=== PATIENT | female | born 1965 | race Caucasian/White ===

== ENCOUNTER 2018-12-31 17:52 | Observation (INO) ==
--- NOTE | 2018-12-31 19:34 | Diag Imaging Result Doc PS360 ---
EXAM: CT HEAD W/O CONTRAST INDICATION: ams, fall TECHNIQUE: This exam was performed using automated exposure control, adjustment of mA or kV according to patient size, and/or use of iterative reconstruction technique. COMPARISON: None. FINDINGS: There is no definite acute infarct given the limited sensitivity of CT versus MRI. There is no discrete intracranial mass, mass effect, or intracranial hemorrhage. The surrounding soft tissues and bony structures are essentially unremarkable. IMPRESSION: No evidence of acute intracranial pathology. Electronically signed by Juliocesar Blackman 12/31/2018 7:31 PM
--- NOTE | 2018-12-31 19:35 | Diag Imaging Result Doc PS360 ---
EXAM: CHEST-2 VIEWS INDICATION: ams TECHNIQUE: 2 views COMPARISON: 07/09/2017 FINDINGS: The lungs are grossly clear. There is no discrete pleural fluid collection or pneumothorax. The cardiomediastinal silhouette and central vasculature are grossly unremarkable. IMPRESSION: No evidence of acute pathology by plain radiograph. Electronically signed by Juliocesar Blackman 12/31/2018 7:32 PM
--- NOTE | 2018-12-31 19:36 | Diag Imaging Result Doc PS360 ---
EXAM: XRAY HIP W/PELVIS BILAT 3-4VWS INDICATION: hip pain TECHNIQUE: 3 views COMPARISON: None. FINDINGS: There is no discrete fracture, dislocation, or significant intrinsic osseous lesion. The hip joint spaces are preserved. Surrounding soft tissues are unremarkable. IMPRESSION: No evidence of acute osseous abnormality. Electronically signed by Juliocesar Blackman 12/31/2018 7:34 PM
[2018-12-31 20:04] LABS: URINE SOURCE CLEAN CATCH
[2018-12-31 20:10] LABS: BILIRUBIN URINE NEGATIVE (NEGATIVE); BLOOD URINE MODERATE (NEGATIVE); COLOR STRAW; GLUCOSE URINE NEGATIVE (NEGATIVE); KETONE URINE NEGATIVE (NEGATIVE); LEUKOCYTES URINE SMALL (NEGATIVE); NITRITE URINE NEGATIVE (NEGATIVE); PROTEIN URINE TRACE mg/dL (NEGATIVE); SP GRAVITY URINE 1.008; TURBIDITY URINE CLEAR (CLEAR); UROBILINOGEN URINE NORMAL (NORMAL)
[2018-12-31 20:12] LABS: UR EPITHELIAL CELLS <10 /HPF (<10); URINE BACTERIA NEGATIVE /HPF; URINE RBC <10 /HPF (<10)
[2018-12-31 20:24] LABS: UR AMPHETAMINES QUAL NONE DETECTED (NONE DETECT); UR BARBITUATES QUAL NONE DETECTED (NONE DETECT); UR BENZODIAZEPIN QUAL NONE DETECTED (NONE DETECT); UR CANNABINOIDS QUAL NONE DETECTED (NONE DETECT); UR COCAINE QUAL NONE DETECTED (NONE DETECT); UR METHADONE QUAL NONE DETECTED (NONE DETECT); UR OPIATES QUAL NONE DETECTED (NONE DETECT); UR OXYCODONE QUAL PRESUMPTIVE POSITIVE (NONE DETECT); UR PCP QUAL NONE DETECTED (NONE DETECT)
[2018-12-31] MEDS ORDERED: TORADOL IV ONE (21:12)
--- NOTE | 2018-12-31 22:22 | Diag Imaging Result Doc PS360 ---
EXAM: CT CERVICAL SPINE W/O CONTRAST INDICATION: fall, neck pain TECHNIQUE: This exam was performed using automated exposure control, adjustment of mA or kV according to patient size, and/or use of iterative reconstruction technique. COMPARISON: None. FINDINGS: There has been prior anterior cervical fusion at C5-6. Metallic hardware is in place. There is multilevel moderate facet arthropathy. There is mild degenerative disc disease at C4-5. The central canal appears to be largely patent. Otherwise, there is no discrete fracture, subluxation, or significant intrinsic osseous lesion. There is mild scarring at the lung apices. Surrounding soft tissues are essentially unremarkable, otherwise. IMPRESSION: Degenerative changes as described , but no evidence of fracture or other definite acute C-spine injury. Electronically signed by Juliocesar Blackman 12/31/2018 10:20 PM
[2018-12-31 22:55] LABS: BASO# 0.01 X1000 (0.0-0.2); BASO% 0.1 % (0.0-0.8); EOS# 0.25 X1000 (0.0-0.7); EOS% 2.7 % (0.0-10.0); HEMATOCRIT 35.6 % (37.0-47.0); HEMOGLOBIN 11.7 g/dL (12.0-16.0); IMM GRAN# 0.02 X1000 (0.0-0.04); IMM GRAN% 0.2 % (0.0-0.5); LYMPH# 2.78 X1000 (1.2-3.4); LYMPH% 29.5 % (20.5-51.1); MCH 28.5 PG (27-31); MCHC 32.9 g/dL (33-37); MCV 86.6 FL (81-99); MONO# 0.66 X1000 (0.11-0.59); MPV 10.1 FL (7.4-10.4); NEUT# 5.71 X1000 (1.4-6.5); NEUT% 60.5 % (42.2-75.2); PLT 269 X1000 (130-400); RBC 4.11 XMIL (4.2-5.4); RDW 14.2 % (11.5-14.5); WBC 9.43 X1000 (4.8-10.8)
[2018-12-31 23:14] LABS: ALB/GLOB RATIO 1.6; ALBUMIN 4.7 g/dL (3.5-5.0); CALCIUM 9.7 mg/dL (8.8-10.2); CREATININE 2.2 mg/dL (0.5-0.9); POTASSIUM 3.8 mmol/L (3.5-5.1); TOTAL BILIRUBIN 0.18 mg/dL (0.20-1.00); TOTAL PROTEIN 7.6 g/dL (6.3-8.3)
[2018-12-31] MEDS ORDERED: NS 1,000 ML IV ONE (23:21)
[2018-12-31 23:53] LABS: CK-MB 33.1 ng/mL (0.0-5.0)
[2019-01-01] MEDS ORDERED: DILAUDID IV ONE (00:01)
[2019-01-01] MEDS ORDERED: ZOFRAN IV ONE (00:01)
--- NOTE | 2019-01-01 01:13 | PROVIDER DOCUMENTATION ---
This chart was entered by Vesta Palacios Scribe, acting as scribe for Harjit Rowell MD. HPI-General Adult - General Chief Complaint: General Adult Stated Complaint: LEFT SIDE WEAKNESS Time Seen by Provider: 12/31/18 18:50 Source: patient Allergies/Adverse Reactions: Patient Allergies Allergy/AdvReac Type Severity Reaction Status Date / Time No Known Allergies Allergy Verified 12/31/18 22:14 Home Medications: Home Medication List Medication Instructions Recorded Confirmed Last Taken Type Duloxetine [Cymbalta] 120 mg PO DAILY 07/09/17 12/31/18 Unknown History Gabapentin [Neurontin] 600 mg PO TID 07/09/17 12/31/18 Unknown History LISINOpril [Prinivil] 20 mg PO DAILY 07/09/17 12/31/18 Unknown History Pantoprazole [Protonix] 40 mg PO DAILY 07/09/17 12/31/18 Unknown History ROSUVAstatin [Crestor] 20 mg PO DAILY 07/09/17 12/31/18 Unknown History Tizanidine HCl [Zanaflex] 8 mg PO DAILY 07/09/17 12/31/18 Unknown History Venlafaxine E.r. [Effexor Xr] 150 mg PO DAILY 07/09/17 12/31/18 Unknown History Allopurinol [Zyloprim] 300 mg PO DAILY 12/31/18 12/31/18 Unknown History Buprenorphine [Butrans] 1 ea TD Q7D 12/31/18 12/31/18 Unknown History Chlorthalidone 25 mg PO DAILY 12/31/18 12/31/18 Unknown History Thyroid,Pork [[place] Thyroid] 60 mg PO DAILY 12/31/18 12/31/18 Unknown History - History of Present Illness -Gen Adult Nature of Presenting Problems: pt is a 53 yr old female presenting with complaint of neck pain, low back pain and left shoulder pain after fall yesterday. pt reports unknown LOC, recalls fall and calling out after fall. pt reports she landed on her back, denies any other injury, no headache. pt reports hallucinations last night, seeing people t hat were not there, tremors to arms and leg, confusion and fatigue/sleepiness today. pt reports she stopped using her Butrans patches this week. Location of Pain/Injury: reports: neck, upper extremity (left shoulder), back Pain Radiation: reports: no radiation Quality of Pain: reports: sharp, tightness Severity: reports: severe Onset/Duration: reports: 24 hours ago Timing: reports: still present Context/Activities at Onset: reports: recent trauma history (fall 1 day ago) Modifying Factors: improves with: movement (worsens pain) Associated Symptoms: reports: back/neck pain, fatigue, joint pain, trouble walking. denies: dizziness, fever/chills, headaches, nausea, shortness of breath, vomiting Similar Symptoms Previously?: Yes (chronic back pain/neck pain) Recently seen or treated by another doctor?: No Review of Systems - Adult - REVIEW OF SYSTEMS - ADULT Constitutional: reports: fatique. denies: fever Eyes: denies: blurred vision, double vision Ears, Nose, Mouth & Throat: reports: no symptoms reported Cardiovascular: denies: chest pain, palpitations, syncope Respiratory: denies: cough, shortness of breath Gastrointestinal: reports: constipation. denies: abdominal pain, nausea, vomiting Genitourinary: reports: no symptoms reported Musculoskeletal: reports: back pain, joint pain, neck pain Integumentary: reports: no symptoms reported Neurological: reports: tremors. denies: dizziness/vertigo, headache/migraines, numbness, slurred speech Psychiatric: reports: depression, emotional problems Endocrine: reports: no symptoms reported Hematologic/Lymphatic: reports: no symptoms reported Allergic/Immunologic: reports: no symptoms reported All Other Systems: Reviewed and Negative Past History - Adult - PAST MEDICAL HISTORY-ADULT Review of Records: reports: Old Records Reviewed, Nursing Assessment Review, Medications Reviewed, Social history reviewed & non-contributory. Major Childhood Illnesses: reports: denies history Cardiovascular: reports: HTN Respiratory: reports: denies history Gastrointestinal: reports: denies history Obstetrical/Gynecological: reports: denies history Genitourinary: reports: denies history Musculoskeletal: reports: arthritis, fibromyalgia Neurological: reports: denies history Endocrine/Immune: reports: Diabetes Other Conditions: reports: denies history - PRIOR SURGERIES/PROCEDURES Surgical/Procedure History: reports: appendectomy, hysterectomy, orthopedic (extremity) - IMMUNIZATION STATUS Childhood Immunizations: See Nurse Assessment Flu Vaccine: See Nurse Assessment - FAMILY HISTORY Family History: reviewed, not pertinent - SOCIAL HISTORY Smoking: denies Substance Use: denies Living Situation: family Physical Exam-General - PHYSICAL EXAM-ADULT Initial Vital Signs Reviewed: Yes - CONSTITUTIONAL General Appearance: alert, no apparent distress, other (sleepy) - EYES Eyes: PERRL/EOMI - HEAD, EARS, NOSE, MOUTH & THROAT HENMT: normocephalic/atraumatic, moist mucous membranes, normal ENT inspection - NECK Neck: non-tender, full range of motion, supple, normal inspection - RESPIRATORY Respiratory: chest non-tender, lungs clear, normal breath sounds - CARDIOVASCULAR Cardiovascular: normal peripheral pulses, regular rate, rhythm, no edema - GASTROINTESTINAL (ABDOMEN) Abdominal Exam: normal bowel sounds, non tender, soft - LYMPHATIC Lymphatic: no adenopathy - MUSCULOSKELETAL Back Exam: vertebral tenderness (lumbar lenderness) Extremity: tenderness (posterior left shoulder). negative: normal range of motion (gaurding left shoulder), pulse deficit - SKIN Integumentary: normal color, normal turgor, warm/dry - NEUROLOGIC Neurologic: grossly normal, no motor/sensory deficits - PSYCHIATRIC Psych/Mental Status: normal mood/affect Progress - PLAN OF CARE/RESULTS Progress/Plan/Lab Results: Vital Signs - 8 hr 12/31/18 18:39 Temperature 99.3 F Pulse Rate 93 H Respiratory Rate 18 Blood Pressure 110/69 O2 Sat by Pulse Oximetry 93 L Laboratory Results - last 24 hr 12/31/18 12/31/18 19:15 19:15 Urine Source CLEAN CATCH Urine Color STRAW Urine Turbidity CLEAR Urine pH 6.0 Ur Specific [place] 1.008 Urine Protein TRACE A Ur Glucose (Stick) NEGATIVE Ur Ketones (Stick) NEGATIVE Urine Blood MODERATE A Urine Nitrite NEGATIVE Urine Bilirubin NEGATIVE Urobilinogen Dipstick NORMAL Urine Leukocytes SMALL A Urine WBC (Auto) 10-20 A Urine RBC (Auto) <10 U Epithel Cells (Auto) <10 Urine Bacteria (Auto) NEGATIVE Urine Opiates Screen NONE DETECTED Ur Oxycodone Screen PRESUMPTIVE POSITIVE A Ur Methadone, Qual NONE DETECTED Ur Barbiturates Screen NONE DETECTED Ur Phencyclidine Scrn NONE DETECTED Ur Amphetamines Screen NONE DETECTED U Benzodiazepines Scrn NONE DETECTED Urine Cocaine Screen NONE DETECTED U Cannabinoids Screen NONE DETECTED Orders Category Date Time Status Nursing- Obtain EKG ONCE Care 12/31/18 18:53 Active CHEST-2 VIEWS [RAD] Stat Exams 12/31/18 18:[address] CERVICAL SPINE W/O CONTRAST [CT] Stat Exams 12/31/18 21:[address] HEAD W/O CONTRAST [CT] Stat Exams 12/31/18 18:53 Completed LUMBAR SPINE [RAD] Stat Exams 12/31/18 21:11 Ordered TRAUMA SHOULDER LEFT [RAD] Stat Exams 12/31/18 21:07 Ordered XRAY HIP W/PELVIS BILAT 3-4VWS [RAD] Stat Exams 12/31/18 18:53 Completed CBC WITH DIFF [HEME] Stat Lab 12/31/18 18:53 Ordered CK PROFILE [SP CHEM] Stat Lab 12/31/18 18:53 Uncollected COMPREHENSIVE METABOLIC PANEL [CHEM] Stat Lab 12/31/18 18:53 Uncollected TROPONIN T Stat Lab 12/31/18 18:53 Uncollected URINALYSIS W/POSS RFLX CULT [URINALYSIS] Stat Lab 12/31/18 19:15 Completed URINE CULTURE [RM] Routine Lab 12/31/18 20:15 Received URINE DRUG SCREEN Stat Lab 12/31/18 19:15 Completed Ketorolac [Toradol] Med 12/31/18 21:12 Discontinued 15 mg IV NOW ONE EKG [EKG] Stat Ther 12/31/18 18:53 Ordered Result Diagrams: 12/31/18 22:39 12/31/18 22:39 - EKG 1 Time of EKG reading by physician:: 18:47 EKG Read and Signed by:: Harjit Rowell EKG Interpretation (*Must complete 3 of following elements*): Normal Rate: 90 Rhythm: nsr [place]: normal QRS: normal RI Interval: normal ST Wave: normal - XRAY 1 XRAY: Left XRAY Study: Pelvis, Hip Impression: Normal (Signed EXAM: XRAY HIP W/PELVIS BILAT 3-4VWS INDICATION: hip pain TECHNIQUE: 3 views COMPARISON: None. FINDINGS: There is no discrete fracture, dislocation, or significant intrinsic osseous lesion. The hip joint spaces are preserved. Surrounding soft tissues are unremarkable. IMPRESSION: No evidence of acute osseous abnormality. Electronically signed by Juliocesar Blackman 12/31/2018 7:34 PM 12/31/181933 Interpreting Physician: Juliocesar Blackman MD Dictated Date/Time: 12/31/181932 cc: Karolina Ford; None,PCP) Comparison with other Films: no prior study 2 XRAY Study: Chest Impression: Normal ( EXAM: CHEST-2 VIEWS INDICATION: ams TECHNIQUE: 2 views COMPARISON: 07/09/2017 FINDINGS: The lungs are grossly clear. There is no discrete pleural fluid collection or pneumothorax. The cardiomediastinal silhouette and central vasculature are grossly unremarkable. IMPRESSION: No evidence of acute pathology by plain radiograph. Electronically signed by Juliocesar Blackman 12/31/2018 7:32 PM 12/31/181931 Interpreting Physician: Juliocesar Blackman MD Dictated Date/Time: 12/31/181931 cc: Karolina Ford; None,PCP) - CT/MRI 1 CT Study: Head Impression: Normal (Signed EXAM: CT HEAD W/O CONTRAST INDICATION: ams, fall TECHNIQUE: This exam was performed using automated exposure control, adjustment of mA or kV according to patient size, and/or use of iterative reconstruction technique. COMPARISON: None. FINDINGS: There is no definite acute infarct given the limited sensitivity of CT versus MRI. There is no discrete intracranial mass, mass effect, or intracranial hemorrhage. The surrounding soft tissues and bony structures are essentially unremarkable. IMPRESSION: No evidence of acute intracranial pathology. Electronically signed by Juliocesar Blackman 12/31/2018 7:31 PM 12/31/181930 Interpreting Physician: Juliocesar Blackman MD Dictated Date/Time: 12/31/181929 cc: Karolina Ford; None,PCP) Comparison with other Films: no prior study - CONSULTS/PCP/HOSPITALIST Notification #1 *Consult/PCP/Hospitalist*: Dr Bradford Time Discussed: 01:09 Reason/Comments: discussed plan of care for pt admit Consult Disposition: Admit Departure - Departure Date of Disposition Decision: 01/01/19 Time of Disposition Decision: 01:10 DIAGNOSIS: Renal insufficiency, Rhabdomyolysis, Altered mental status, UTI (urinary tract infection) Disposition: ADMITTED INPATIENT Certified Medical Emergency: Emergent Condition: Fair Referrals and Follow-Ups: None,PCP [NON-STAFF PROVIDER] - - Critical Care Note This patient required my direct & personal management of CC.: No Attestation - Physician/ GINO Attestation Patient care was provided by Advanced Practice Provider:: No The physician spent face to face time with patient:: Yes Advanced Practice Provider documentation review:: Supervising physician onsite and consulted in the evaluation and care of this patient. The physician did have a face to face encounter with the patient. This chart was documented by the indicated scribe, (Vesta Palacios, Paula) and accurately reflects the services I performed and decisions made by me, Harjit Rowell MD, as attested by the provider's signature.
--- NOTE | 2019-01-01 02:53 | HISTORY AND PHYSICAL ---
PRIMARY CARE PHYSICIAN: Dr. Tanika Romero. CHIEF COMPLAINT: Fall, altered mental status, tremors. HISTORY OF PRESENTING ILLNESS: A 53-year-old female with a history of chronic pain syndrome, fibromyalgia, GERD, chronic kidney disease, and hypertension, who presented to emergency department due to patient having an episode where she fell and was having some tremors, and also having left shoulder pain. The patient, apparently, is on chronic pain management with opioids and recently started Butrans. However, she could not tolerate the Butrans and stopped it. The patient states that she developed those symptoms after stopping the Butrans. She was evaluated in the emergency department and, due to her presenting symptoms, it was thought that she would need admission for further management. At the time of my examination, the patient had denied any headache, fever, chills, chest pain, shortness of breath, or any weight changes, but complained of still being somewhat groggy and not feeling well. PAST MEDICAL HISTORY: Includes hypertension, hyperlipidemia, gout, GERD, fibromyalgia, chronic kidney disease. PAST SURGICAL HISTORY: Appendectomy, hysterectomy, cervical fusion. ALLERGIES: NSAIDs. CURRENT MEDICATIONS: Include allopurinol 300 mg p.o. daily, Butrans 1 transdermal for 7 days, chlorthalidone 25 mg p.o. daily, Cymbalta 120 mg p.o. daily, gabapentin 600 mg p.o. t.i.d., lisinopril 20 mg p.o. daily, pantoprazole 40 mg p.o. daily, Crestor 20 mg p.o. daily, [place] Thyroid 60 mg p.o. daily, tizanidine 8 mg p.o. daily, Effexor XR 150 mg p.o. daily. SOCIAL HISTORY: No history of smoking, alcohol, or illicit drug use. FAMILY HISTORY: Positive for coronary artery disease in Mother and Father. REVIEW OF SYSTEMS: Fourteen point review of systems is as in HPI. Other systems negative. PHYSICAL EXAMINATION: GENERAL: Cooperative, friendly female. She is resting comfortably now. VITAL SIGNS: Temperature 99.3 degrees, pulse 92, respiration 18, blood pressure 110/69. HEENT: Atraumatic, normocephalic. Extraocular movements intact. PERRLA. NECK: No masses. CHEST: Clear to auscultation. CARDIOVASCULAR: Regular rate and rhythm. ABDOMEN: Soft, positive bowel sounds. EXTREMITIES: No edema. NEUROLOGIC: She is awake, alert, oriented x2. GENITOURINARY: No bladder distention. SKIN: Warm. LABORATORIES AND STUDIES: WBCs 9.43, hemoglobin 11.7, hematocrit 35.6, platelets 269,000. Sodium 138, potassium 3.8, chloride 98, CO2 is 24, BUN is 40, creatinine is 2.2. Glucose 113. Creatine kinase is 1638. UA is nitrite negative. Her toxicology screen positive for oxycodone. CT of the cervical spine, degenerative changes. CT of the head, no acute findings. ASSESSMENT: A 53-year-old female with a history of hypertension, hyperlipidemia, gout, fibromyalgia, chronic kidney disease, who is on chronic pain management. Apparently, was recently started on Butrans. However, she developed some confusion and she had a fall. She complained of also having tremor symptoms, and also left shoulder pain after a fall. She was evaluated in the emergency department. It was also noted that have creatine kinase was mildly elevated. Due to her presenting symptoms, we will place her for observation for further evaluation and management. 1. Status post fall. 2. Altered mental status. Seems to have resolved. 3. Elevated creatine phosphokinase, possible rhabdomyolysis. 4. Chronic kidney disease. 5. Fibromyalgia. 6. Chronic pain syndrome. PLAN: 1. We will admit patient to medical floor with telemetry. 2. Continue with supportive treatment with IV fluids, antiemetics as needed. 3. Monitor her neuro status. 4. We will recheck her CPK levels after hydration. 5. Monitor renal function. 6. We will hold all sedatives and narcotics for now. 7. We will put patient on DVT prophylaxis with SCDs. 8. Continue to follow and reassess, make further recommendation based on patient's clinical course. cc: Sanjiv Bradford MD
[2019-01-01] MEDS: NS 1,000 ML IV SCH ×3 (04:38→20:50)
--- NOTE | 2019-01-01 06:03 | Diag Imaging Result Doc PS360 ---
EXAM: TRAUMA SHOULDER LEFT HISTORY: fall, shoulder pain TECHNIQUE: Left shoulder, two views COMPARISON: None. FINDINGS: No fracture. No dislocation. IMPRESSION: No acute bony injury. Electronically signed by Dedrick Augustin 01/01/2019 6:01 AM
--- NOTE | 2019-01-01 06:06 | Diag Imaging Result Doc PS360 ---
EXAM: LUMBAR SPINE HISTORY: back pain TECHNIQUE: AP and lateral with obliques, six views COMPARISON: None. FINDINGS: There is slight curvature to the spine no compressed vertebra. No subluxation. Small degenerative bone spurring. IMPRESSION: Mild degenerative changes with slight scoliosis. Electronically signed by Dedrick Augustin 01/01/2019 6:04 AM
--- NOTE | 2019-01-01 06:48 | EKG Report ---
Test Performed on : 12/31/2018 6:47:25 PM Test Reason : ams Blood Pressure : / mmHG Vent. Rate : 090 BPM Atrial Rate : 090 BPM P-R Int : 170 ms QRS Dur : 088 ms QT Int : 350 ms P-R-T Axes : 027 030 015 degrees QTc Int : 428 ms Normal sinus rhythm. Normal ECG No previous ECGs available Unconfirmed Result
[2019-01-01] MEDS ORDERED: CRESTOR PO SCH (09:00)
[2019-01-01] MEDS ORDERED: PRINIVIL PO SCH (09:00)
[2019-01-01] MEDS ORDERED: EFFEXOR XR PO SCH ×2 (09:00→21:00)
[2019-01-01] MEDS ORDERED: CYMBALTA PO SCH (09:00)
[2019-01-01] MEDS: ZYLOPRIM PO SCH (09:15)
[2019-01-01] MEDS: THYROID PO SCH ×3 (09:15→11:35)
[2019-01-01] MEDS: PROTONIX PO SCH (09:16)
[2019-01-01] MEDS ORDERED: THYROID PO SCH (09:45)
[2019-01-01] MEDS: TYLENOL PO PRN ×2 (10:10→18:23)
[2019-01-01] MEDS: ZOFRAN IV PRN ×2 (10:10→18:29)
[2019-01-01] MEDS: DULCOLAX PR SCH ×2 (10:37→21:02)
--- NOTE | 2019-01-01 14:35 | PROGRESS NOTE ---
DATE: 01/01/2019 INTERVAL HISTORY: No acute events overnight. She is feeling much better today than she did yesterday. She is still complaining of generalized body ache related to her fibromyalgia. She states that she was recently started on Suboxone weekly patch. At the same time she was also taking Percocet which made her feel really tremulous and not so well so she took out her Suboxone patch on Friday. However, she continues to feel worse. She had fallen down on Friday and since then she continued to feel worse so she decided to come to the hospital. She also states that she has been making less and less amount of urine since last 3 to 5 days. VITALS: Temperature 98.8 degrees, pulse 87, respiratory rate 16, blood pressure 120/60, saturating 99% on 2 L nasal cannula. PHYSICAL EXAMINATION: General: Does not appear in any acute distress. Oral cavity is moist. Lungs: Air entry bilaterally equal. No wheeze, rhonchi, crackles. Cardiovascular: S1, S2 normal. No murmur or gallop. Abdomen: Soft, nontender. Extremity: No lower extremity edema. She is alert and oriented x 3. LABS: Suggestive of hemoglobin of 11.7. She does have acute kidney injury, mild AST elevation, rhabdomyolysis. There was more red blood in urine without any RBCs. Oxycodone was positive and urine toxicology. Urine culture has not shown any growth. IMAGING: Chest x-ray did not have any acute pathologies. Head CT, cervical spine CT, shoulder x- ray, and lumbar spinal x-ray are unremarkable. EKG had normal sinus rhythm. ASSESSMENT AND PLAN: 1. Rhabdomyolysis after a fall leading to acute kidney injury. Continue patient on intravenous fluid resuscitation. Follow up with [facility]. I will hold her chlorthalidone and discontinue lisinopril until kidney function recovers. Unfortunately, she was also given intravenous NSAID in the emergency room. 2. Acute encephalopathy, confusion, tremors on presentation, likely related to opioid withdrawal related to buprenorphine use, now resolved. Head CT was unremarkable. 3. History of fibromyalgia. Continue home venlafaxine, duloxetine, and I will add back Percocet in the future as tolerated though it is not listed in her home medication somehow. 4. Others: Continue allopurinol for history of gout, MiraLAX with bisacodyl for constipation, and pantoprazole for chronic GERD, as well as thyroid for her hypothyroidism. DISPOSITION: I am awaiting improvement in her BMP. I will also discontinue rosuvastatin because of her current rhabdomyolysis. Plan of care discussed with her. Her questions have been answered. cc: Sheldon Godoy MD
[2019-01-01] MEDS: MIRALAX PO SCH ×2 (14:45→21:03)
[2019-01-01] MEDS: CYMBALTA PO SCH (20:47)
[2019-01-02] MEDS: THYROID PO SCH (06:14)
[2019-01-02] MEDS: NS 1,000 ML IV SCH (06:15)
[2019-01-02 06:32] LABS: BASO# 0.01 X1000 (0.0-0.2); BASO% 0.2 % (0.0-0.8); EOS# 0.23 X1000 (0.0-0.7); EOS% 3.7 % (0.0-10.0); HEMATOCRIT 34.5 % (37.0-47.0); HEMOGLOBIN 11.1 g/dL (12.0-16.0); LYMPH# 2.26 X1000 (1.2-3.4); LYMPH% 36.3 % (20.5-51.1); MCH 28.6 PG (27-31); MCHC 32.2 g/dL (33-37); MCV 88.9 FL (81-99); MONO# 0.53 X1000 (0.11-0.59); MONO% 8.5 % (1.7-9.3); MPV 10.1 FL (7.4-10.4); NEUT# 3.19 X1000 (1.4-6.5); NEUT% 51.3 % (42.2-75.2); PLT 232 X1000 (130-400); RBC 3.88 XMIL (4.2-5.4); RDW 13.7 % (11.5-14.5); WBC 6.22 X1000 (4.8-10.8)
[2019-01-02 07:14] LABS: CALCIUM 8.4 mg/dL (8.8-10.2); POTASSIUM 4.4 mmol/L (3.5-5.1)
[2019-01-02] MEDS: MIRALAX PO SCH (08:44)
[2019-01-02] MEDS: ZYLOPRIM PO SCH (08:45)
[2019-01-02] MEDS: PROTONIX PO SCH (08:45)
[2019-01-02] MEDS: TYLENOL PO PRN (08:45)
[2019-01-02] MEDS: CYMBALTA PO SCH (08:45)
[2019-01-02] MEDS: ZOFRAN IV PRN (08:46)
[2019-01-02 11:56] VITALS: BP 132/78
[2019-01-02] MEDS: DULCOLAX PR SCH (11:56)
--- NOTE | 2019-01-02 15:04 | DISCHARGE SUMMARY ---
ADMISSION DATE: 01/01/2019 DISCHARGE DATE: 01/02/2019 DISCHARGE DISPOSITION: Home. DISCHARGE CONDITION: Hemodynamically stable. Her pain is acceptable. Her kidney function has returned. She is eating normal food. DISCHARGE DIAGNOSES: 1. Rhabdomyolysis after a fall. 2. Acute kidney injury. 3. Acute encephalopathy, confusion and tremors due to opioid withdrawal. OTHER DIAGNOSES: 1. History of chronic pain. 2. History of fibromyalgia. 3. History of chronic gastroesophageal reflux disease. 4. History of hypothyroidism. 5. History of [place] syndrome. 6. History of essential hypertension, hyperlipidemia, gout. DISCHARGE MEDICATIONS: Venlafaxine extended release 150 mg at nighttime, [place] Thyroid 30 mg daily, buprenorphine 1 patch every 7 days, however, patient had stopped using this patch since it made her have tremulousness, so she was advised to discuss with her pain doctor about her opioid pain regimen, chlorthalidone 25 mg daily, rosuvastatin 20 mg daily, duloxetine 60 mg b.i.d. gabapentin 600 mg t.i.d., lisinopril 20 mg daily, pantoprazole 40 mg daily, tizanidine 8 mg daily, allopurinol 300 mg daily. VITAL SIGNS: At the time of discharge temperature 98.5 degrees, pulse 70, respiratory rate 16, blood pressure 130/78, saturating 98% on room air. PHYSICAL EXAMINATION: She does not appear in acute distress. Oral cavity is moist. Air entry bilaterally equal, no wheeze, rhonchi, crackles. S1, S2 normal. No murmur or gallop. Abdomen is soft, nontender, obese. No lower extremity edema. She is alert and oriented x3. LABS: Suggestive of normocytic anemia, normal platelet count. Her BUN is 16, creatinine of 1 which improved from BUN of 40 and 2.2 on presentation. Her creatine kinase on presentation was 1600. Her troponin was less than 0.010. Urinalysis had trace proteinuria, moderate blood, small leukocytes with 10 to 12 WBCs, less than 10 RBCs. Microbiology, urine culture did not have any growth. SIGNIFICANT IMAGING DURING HOSPITAL ADMISSION: Chest x-ray did not have any evidence of acute pathology. Head CT did not have any evidence of acute intracranial pathology. Hip, pelvis x-ray did not have any evidence of acute osseous abnormality. Cervical spine CT had degenerative changes, but no evidence of fracture or definitive acute C-spine injury. Shoulder x-ray did not have any acute bony injury. Lumbar spine x-ray, there was slight curvature to the spine without any compressed vertebrae, no subluxation, small degenerative bone spurring. Electrocardiogram had normal sinus rhythm. HOSPITAL COURSE SUMMARY: Ms. Hightower is a [id number] lady with past medical history of fibromyalgia and chronic opioid use who presented to the emergency room due to episodes of mechanical fall, tremors and generalized body pain. Apparently, the patient has been on long- standing Percocet until recently when her physician started on Butrans; however, it looks like there was a miscommunication and patient did not know whether she was supposed to be taking Percocet along with Butrans or not. After Butrans patch, she started feeling not so well and she had unusual physical symptoms which she could not describe really, so she took the Butrans patch off. However, she continued to have symptoms of jitteriness, confusion, drowsiness and tremors to an extent that she fell down at her home and with these complaints she decided to come to the hospital because after the fall she started having generalized body ache. In the hospital she was found to have acute kidney injury with BUN of 40 and creatinine of 2.2. She was also found to have elevated CPK, so the hospitalist team was consulted for further management. All of her opioids were held at the time of hospital admission. She was aggressively rehydrated with intravenous fluids following which the next day, her BUN improved to 16 and creatinine was 1, which was close to her baseline. She was deemed appropriate for discharge. She was advised to call her pain doctor on Friday, which is day after tomorrow, to get the streamlined pain medication regimen. Then she was advised to not wear Butrans patch. Plan of care was discussed with the patient and all of her questions were answered. TIME SPENT: More than 30 minutes was spent in discharging this patient. cc: Sheldon Godoy MD
== END 2019-01-02 15:48 | disposition home or self-care (01) ==
LOC: ED 17:52 → EDIPHOLD 17:52 → SUATTDRO 01-01 02:27 → 4N 01-01 03:31
PROVIDERS: ATTEND Internal Medicine